=== PATIENT | female | born 1965 | race Caucasian/White ===

== ENCOUNTER 2018-02-07 08:26 | Emergency (ER) | payer BC ==
[2018-02-07] MEDS ORDERED: Ketorolac 60 MG/2 ML SDV IM ONE (09:06)
--- NOTE | 2018-02-07 09:08 | EDM.PDOC ---
ED HPI GENERAL MEDICAL PROBLEM - General Chief Complaint: Headache Stated Complaint: pain on left side of head Time Seen by Provider: 02/07/18 09:00 Source of Information: Reports: Patient History Limitations: Reports: No Limitations - History of Present Illness INITIAL COMMENTS - FREE TEXT/NARRATIVE: History of present illness: []Patient has had her typical migraine are minimally since the . Now has left frontal pressure on her scalp that does not feel like a migraine and is not alleviated with any medications. She denies any visual changes, numbness, tingling, nausea, vomiting or dizziness. Review of systems: As per history of present illness and below otherwise all systems reviewed and negative. Past medical history: As per history of present illness and as reviewed below otherwise noncontributory. Surgical history: As per history of present illness and as reviewed below otherwise noncontributory. Social history: No reported history of drug or alcohol abuse. Family history: As per history of present illness and as reviewed below otherwise noncontributory. Physical exam: General: Well developed, well nourished in NAD HEENT: Atraumatic, normocephalic, pupils reactive, negative for conjunctival pallor or scleral icterus, mucous membranes moist, throat clear, neck supple, nontender, trachea midline. No sinus tenderness TMs normal Lungs: Clear to auscultation, breath sounds equal bilaterally, chest nontender. Heart: S1S2, regular, negative for clicks, rubs, or JVD. Abdomen: Soft, nondistended, nontender. Negative for masses or hepatosplenomegaly. Negative for costovertebral tenderness. Pelvis: Stable nontender. Genitourinary: Deferred. Rectal: Deferred. Extremities: Atraumatic, negative for cords or calf pain. Neurovascular unremarkable. Neuro: Awake, alert, oriented. Cranial nerves II through XII unremarkable. Cerebellum unremarkable. Motor and sensory unremarkable throughout. Exam nonfocal. Present is negative Diagnostics: [] Therapeutics: []Toradol with improvement Impression: []Cephalgia Plan: []Motrin ice packs follow-up with primary care physician return if symptoms worsen or change Definitive disposition and diagnosis as appropriate pending reevaluation and review of above. Left Headache Pain Score (Numeric/FACES): 4 - Related Data Allergies Allergy/AdvReac Type Severity Reaction Status Date / Time Penicillins Allergy Hives Verified 02/07/18 08:51 Sulfa (Sulfonamide Allergy Hives Verified 02/07/18 08:52 Antibiotics) Home Meds: Home Meds . [No Known Home Meds] 02/07/18 [History] Past Medical History - Past Health History Medical/Surgical History: Denies Medical/Surgical History - Infectious Disease History Infectious Disease History: Reports: Chicken Pox, Shingles Social & Family History - Family History Family Medical History: Noncontributory - Tobacco Use Smoking Status *Q: Never Smoker - Caffeine Use Caffeine Use: Reports: Coffee - Recreational Drug Use Recreational Drug Use: No ED ROS GENERAL - Review of Systems Review Of Systems: See Below (See history of present illness) - Physical Exam Exam: See Below (See history of present illness) Course - Vital Signs Last Recorded V/S: Last Vital Signs Temp 97.8 F 02/07/18 08:43 Pulse 104 H 02/07/18 08:43 Resp 16 02/07/18 08:43 BP 127/78 02/07/18 08:43 Pulse Ox 98 02/07/18 08:43 - Orders/Labs/Meds Meds: Medications Discontinued Medications Generic Name Dose Route Start Last Admin Trade Name Freq PRN Reason Stop Dose Admin Ketorolac Tromethamine 60 mg 02/07/18 09:06 02/07/18 09:14 Toradol IM 02/07/18 09:07 60 mg ONETIME ONE Administration Departure - Departure Time of Disposition: 09:52 Disposition: Home, Self-Care 01 Condition: Good Clinical Impression: Cephalgia - Discharge Information Referrals: PCP,None [Primary Care Provider] - Forms: ED Department Discharge Additional Instructions: The following information is given to patients seen in the emergency department who are being discharged to home. This information is to outline your options for follow-up care. We provide all patients seen in our emergency department with a follow-up referral. The need for follow-up, as well as the timing and circumstances, are variable depending upon the specifics of your emergency department visit. If you don't have a primary care physician on staff, we will provide you with a referral. We always advise you to contact your personal physician following an emergency department visit to inform them of the circumstance of the visit and for follow-up with them and/or the need for any referrals to a consulting specialist. The emergency department will also refer you to a specialist when appropriate. This referral assures that you have the opportunity for follow-up care with a specialist. All of these measure are taken in an effort to provide you with optimal care, which includes your follow-up. Under all circumstances we always encourage you to contact your private physician who remains a resource for coordinating your care. When calling for follow-up care, please make the office aware that this follow-up is from your recent emergency room visit. If for any reason you are refused follow-up, please contact the [facility] Emergency Department at and asked to speak to the emergency department charge nurse. Motrin and ice packs for pain follow-up with primary care David if symptoms worsen or change [facility] [address] [place] [id number]
== END 2018-02-07 09:56 | disposition home or self-care (01) ==
LOC: MW.ED 08:26
DX: R51 Headache (principal); Z88.0 Allergy status to penicillin; Z88.2 Allergy status to sulfonamides
CPT/HCPCS: 96372; 99283; J1885; 99282

== ENCOUNTER 2018-02-17 14:40 | Emergency (ER) | payer BC ==
--- NOTE | 2018-02-17 15:40 | EDM.PDOC ---
ED HPI GENERAL MEDICAL PROBLEM - General Chief Complaint: Headache Stated Complaint: HEADACHES Time Seen by Provider: 02/17/18 14:46 - History of Present Illness INITIAL COMMENTS - FREE TEXT/NARRATIVE: HISTORY AND PHYSICAL: History of present illness: Patient's 52-year-old female with history of headache who was scheduled for an MRI and neurology follow-up who presents with a concern of medical screening exam and desirous of expedite her MRI patient has pain that starts in the occipital region goes to the frontal scalp and then develops into what patient describes as migraine type headache she's been seen by her provider has been put on multiple medications she is not used all of them due to a general discomfort with medication. Review of systems: As per history of present illness and below otherwise all systems reviewed and negative. Past medical history: As per history of present illness and as reviewed below otherwise noncontributory. Surgical history: As per history of present illness and as reviewed below otherwise noncontributory. Social history: No reported history of drug or alcohol abuse. Family history: As per history of present illness and as reviewed below otherwise noncontributory. Physical exam: HEENT: Atraumatic, normocephalic, pupils reactive, negative for conjunctival pallor or scleral icterus, mucous membranes moist, throat clear, neck supple, nontender, trachea midline. Lungs: Clear to auscultation, breath sounds equal bilaterally, chest nontender. Heart: S1S2, regular, negative for clicks, rubs, or JVD. Abdomen: Soft, nondistended, nontender. Negative for masses or hepatosplenomegaly. Negative for costovertebral tenderness. Pelvis: Stable nontender. Genitourinary: Deferred. Rectal: Deferred. Extremities: Atraumatic, negative for cords or calf pain. Neurovascular unremarkable. Neuro: Awake, alert, oriented. Cranial nerves II through XII unremarkable. Cerebellum unremarkable. Motor and sensory unremarkable throughout. Exam nonfocal. Diagnostics: Deferred Therapeutics: Deferred Impression: #1 cephalgia #2 rule occipital neuralgia #3 rule out migraine headache Definitive disposition and diagnosis as appropriate pending reevaluation and review of above. headache Pain Score (Numeric/FACES): 7 - Related Data Allergies Allergy/AdvReac Type Severity Reaction Status Date / Time Penicillins Allergy Hives Verified 02/17/18 15:19 Sulfa (Sulfonamide Allergy Hives Verified 02/17/18 15:19 Antibiotics) Home Meds: Home Meds Diclofenac Sodium [IJD: Diclofenac Sodium] 75 mg PO BID PRN 02/17/18 [History] Past Medical History - Past Health History Medical/Surgical History: Denies Medical/Surgical History - Infectious Disease History Infectious Disease History: Reports: Chicken Pox, Shingles Social & Family History - Family History Family Medical History: Noncontributory - Tobacco Use Smoking Status *Q: Never Smoker - Caffeine Use Caffeine Use: Reports: None - Recreational Drug Use Recreational Drug Use: No ED ROS GENERAL - Review of Systems Review Of Systems: ROS reveals no pertinent complaints other than HPI. ED EXAM, GENERAL - Physical Exam Exam: See Below (See dictation) Course - Vital Signs Text/Narrative:: I discussed with patient diagnostic tests including CT scan I also discussed therapeutic interventions including Reglan and Benadryl Toradol Zofran intravenously as a migraine combination patient declines all the above we'll discuss with her private provider expedited follow-up with neurology and MRI. Last Recorded V/S: Last Vital Signs Temp 36.5 C 02/17/18 14:52 Pulse 90 02/17/18 14:52 Resp 18 02/17/18 14:52 BP 142/82 H 02/17/18 14:52 Pulse Ox 95 02/17/18 14:52 Departure - Departure Time of Disposition: 15:39 Disposition: Home, Self-Care 01 Condition: Good Clinical Impression: Cephalgia - Discharge Information Referrals: PCP,None [Primary Care Provider] - Additional Instructions: The following information is given to patients seen in the emergency department who are being discharged to home. This information is to outline your options for follow-up care. We provide all patients seen in our emergency department with a follow-up referral. The need for follow-up, as well as the timing and circumstances, are variable depending upon the specifics of your emergency department visit. If you don't have a primary care physician on staff, we will provide you with a referral. We always advise you to contact your personal physician following an emergency department visit to inform them of the circumstance of the visit and for follow-up with them and/or the need for any referrals to a consulting specialist. The emergency department will also refer you to a specialist when appropriate. This referral assures that you have the opportunity for followup care with a specialist. All of these measure are taken in an effort to provide you with optimal care, which includes your followup. Under all circumstances we always encourage you to contact your private physician who remains a resource for coordinating your care. When calling for followup care, please make the office aware that this follow-up is from your recent emergency room visit. If for any reason you are refused follow-up, please contact the [facility] emergency department at and asked to speak to the emergency department charge nurse. Follow-up private medical doctor medications as directed and return as needed as discussed[]
== END 2018-02-17 16:04 | disposition home or self-care (01) ==
LOC: MW.ED 14:40
DX: R51 Headache (principal); Z88.0 Allergy status to penicillin; Z88.2 Allergy status to sulfonamides
CPT/HCPCS: 99282; 99283

== ENCOUNTER 2018-02-18 02:17 | Emergency (ER) | payer BC ==
[2018-02-18] MEDS ORDERED: Sodium Chloride 0.9% 1,000 ML IV ONE (02:48)
[2018-02-18] MEDS ORDERED: Promethazine 25 MG/ML SDV IM ONE (02:49)
[2018-02-18] MEDS ORDERED: diphenhydrAMINE 50 MG/ML SDV IVPUSH ONE (02:49)
[2018-02-18] MEDS ORDERED: LORazepam 2 MG/ML SDV IVPUSH ONE (02:49)
--- NOTE | 2018-02-18 02:54 | EDM.PDOC ---
ED HPI GENERAL MEDICAL PROBLEM - General Chief Complaint: General Stated Complaint: HEADACHE Time Seen by Provider: 02/18/18 02:50 Source of Information: Reports: Patient - History of Present Illness INITIAL COMMENTS - FREE TEXT/NARRATIVE: HISTORY AND PHYSICAL: History of present illness: [Patient presents with headache she rates 8 out of 10 beginning occipital on the left radiating frontal , she has had headache off and on for nearly a month and has been been reluctant with treatment she states she has had lab scheduled at [facility] with provider Thai. She has been scrubbed prescribed Flexeril tramadol and diclofenac, she has been largely noncompliant with these medications however she did try diclofenac today as well as 2 Benadryl at 10 PM along with ibuprofen and Tylenol as she is reluctant to take medications. He has been reluctant to receive any workup in the past she has multiple ER visits and declined workup or treatment she has been doing some Internet reading ends and is concerned that she may have West Nile and Lyme's disease although these are less likely given the winter season here in [place]. She is not had any imaging although she is scheduled for MRI on the she at this time would like a full workup concerning the headache she has been having and agrees to some treatment as she has been unable to sleep due to the headache tonight No fever nausea vomiting chills sweats no scotomas no chest pain shortness breath dizziness or palpitation no bowel or urine symptoms ] Review of systems: As per history of present illness and below otherwise all systems reviewed and negative. Past medical history: As per history of present illness and as reviewed below otherwise noncontributory. Surgical history: As per history of present illness and as reviewed below otherwise noncontributory. Social history: No reported history of drug or alcohol abuse. Family history: As per history of present illness and as reviewed below otherwise noncontributory. Physical exam: HEENT: Atraumatic, normocephalic, pupils reactive, negative for conjunctival pallor or scleral icterus, mucous membranes moist, throat clear, neck supple, nontender, trachea midline. Lungs: Clear to auscultation, breath sounds equal bilaterally, chest nontender. Heart: S1S2, regular, negative for clicks, rubs, or JVD. Abdomen: Soft, nondistended, nontender. Negative for masses or hepatosplenomegaly. Negative for costovertebral tenderness. Pelvis: Stable nontender. Genitourinary: Deferred. Rectal: Deferred. Extremities: Atraumatic, negative for cords or calf pain. Neurovascular unremarkable. Neuro: Awake, alert, oriented. Cranial nerves II through XII unremarkable. Cerebellum unremarkable. Motor and sensory unremarkable throughout. Exam nonfocal. Diagnostics: [ UVC CMP UA CT head no contrast EKG Chest 1 view ] Therapeutics: [1 L normal saline bolus Benadryl 50 mg IV Phenergan 25 mgIM Lorazepam 1 mg IV ] Impression: [ headache ]--resolved Definitive disposition and diagnosis as appropriate pending reevaluation and review of above. head/chest back Pain Score (Numeric/FACES): 10 - Related Data Allergies Allergy/AdvReac Type Severity Reaction Status Date / Time Penicillins Allergy Hives Verified 02/18/18 02:22 Sulfa (Sulfonamide Allergy Hives Verified 02/18/18 02:22 Antibiotics) Home Meds: Home Meds Diclofenac Sodium [IJD: Diclofenac Sodium] 75 mg PO BID PRN 02/17/18 [History] Cyclobenzaprine [Flexeril] 5 mg PO BID 02/18/18 [History] traMADol HCl [Tramadol HCl] 50 mg PO BID 02/18/18 [History] Past Medical History - Past Health History Medical/Surgical History: Denies Medical/Surgical History HEENT History: Reports: None Cardiovascular History: Reports: None Respiratory History: Reports: None Gastrointestinal History: Reports: None Genitourinary History: Reports: None 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: Musculoskeletal History: Reports: None Neurological History: Reports: Migraines Psychiatric History: Reports: None Endocrine/Metabolic History: Reports: None Hematologic History: Reports: None Dermatologic History: Reports: None - Infectious Disease History Infectious Disease History: Reports: Chicken Pox, Shingles - Past Surgical History Musculoskeletal Surgical History: Reports: None Social & Family History - Family History Family Medical History: Noncontributory - Tobacco Use Smoking Status *Q: Never Smoker - Caffeine Use Caffeine Use: Reports: None - Recreational Drug Use Recreational Drug Use: No ED ROS GENERAL - Review of Systems Review Of Systems: ROS reveals no pertinent complaints other than HPI. ED EXAM, GENERAL - Physical Exam Exam: See Below Course - Vital Signs Last Recorded V/S: Last Vital Signs Temp 98.0 F 02/18/18 02:22 Pulse 94 04/13/18 03:15 Resp 17 02/18/18 03:15 BP 125/77 02/18/18 03:15 Pulse Ox 98 02/18/18 03:15 - Orders/Labs/Meds Orders: Active Orders 24 hr Category Date Time Status EKG Documentation Completion [RC] STAT Care 02/18/18 02:50 Active Chest 1V Frontal [CR] Stat Exams 02/18/18 02:50 Taken Head wo Cont [CT] Stat Exams 02/18/18 02:50 Taken DRUG SCREEN, URINE [URCHEM] Stat Lab 02/18/18 02:18 Ordered UA W/MICROSCOPIC [URIN] Stat Lab 02/18/18 02:18 Ordered Labs: Laboratory Tests 02/18/18 02/18/18 02/18/18 Range/Units 02:18 02:18 02:57 WBC 6.97 (4.0-11.0) K/uL RBC 4.91 (4.30-5.90) M/uL Hgb 14.6 (12.0-16.0) g/dL Hct 43.9 (36.0-46.0) % MCV 89.4 (80.0-98.0) fL MCH 29.7 (27.0-32.0) pg MCHC 33.3 (31.0-37.0) g/dL RDW Std Deviation 41.7 (28.0-62.0) fl RDW Coeff of [place] 13 (11.0-15.0) % Plt Count 200 (150-400) K/uL MPV 9.20 (7.40-12.00) fL Neut % (Auto) 70.6 (48.0-80.0) % Lymph % (Auto) 19.8 (16.0-40.0) % [place] % (Auto) 7.3 (0.0-15.0) % Eos % (Auto) 2.0 (0.0-7.0) % Baso % (Auto) 0.3 (0.0-1.5) % Neut # (Auto) 4.9 (1.4-5.7) K/uL Lymph # (Auto) 1.4 (0.6-2.4) K/uL [place] # (Auto) 0.5 (0.0-0.8) K/uL Eos # (Auto) 0.1 (0.0-0.7) K/uL Baso # (Auto) 0.0 (0.0-0.1) K/uL Sodium (136-145) mmol/L Potassium (3.5-5.1) mmol/L Chloride (98-107) mmol/L Carbon Dioxide (21.0-32.0) mmol/L BUN (7.0-18.0) mg/dL Creatinine (0.6-1.0) mg/dL Est Cr Clr Drug Dosing mL/min Estimated GFR (MDRD) ml/min Glucose (74-106) mg/dL Calcium (8.5-10.1) mg/dL Total Bilirubin (0.2-1.0) mg/dL AST (15-37) IU/L ALT (14-63) IU/L Alkaline Phosphatase (46-116) U/L Creatine Kinase (26-308) U/L Troponin I (0.000-0.056) ng/mL Total Protein (6.4-8.2) g/dL Albumin (3.4-5.0) g/dL Globulin (2.0-3.5) g/dL Albumin/Globulin Ratio (1.3-2.8) Urine Color YELLOW Urine Appearance CLEAR Urine pH 5.5 (5.0-8.0) Ur Specific [place] <= 1.005 (1.001-1.035) Urine Protein NEGATIVE (NEGATIVE) mg/dL Urine Glucose (UA) NEGATIVE (NEGATIVE) mg/dL Urine Ketones NEGATIVE (NEGATIVE) mg/dL Urine Occult Blood LARGE H (NEGATIVE) Urine Nitrite NEGATIVE (NEGATIVE) Urine Bilirubin NEGATIVE (NEGATIVE) Urine Urobilinogen 0.2 (<2.0) EU/dL Ur Leukocyte Esterase NEGATIVE (NEGATIVE) Urine RBC 2-6 (0-2/HPF) Urine WBC 0-1 (0-5/HPF) Ur Epithelial Cells OCCASIONAL (NONE-FEW) Urine Bacteria FEW (NEGATIVE) Urine Opiates Screen NEGATIVE (NEGATIVE) Ur Oxycodone Screen NEGATIVE (NEGATIVE) Urine Methadone Screen NEGATIVE (NEGATIVE) Ur Barbiturates Screen NEGATIVE (NEGATIVE) Ur Phencyclidine Scrn NEGATIVE (NEGATIVE) Ur Amphetamine Screen NEGATIVE (NEGATIVE) U Methamphetamines Scrn NEGATIVE (NEGATIVE) U Benzodiazepines Scrn NEGATIVE (NEGATIVE) U Cocaine Metab Screen NEGATIVE (NEGATIVE) U Marijuana (THC) Screen NEGATIVE (NEGATIVE) 02/18/18 02/18/18 Range/Units 02:57 02:57 WBC (4.0-11.0) K/uL RBC (4.30-5.90) M/uL Hgb (12.0-16.0) g/dL Hct (36.0-46.0) % MCV (80.0-98.0) fL MCH (27.0-32.0) pg MCHC (31.0-37.0) g/dL RDW Std Deviation (28.0-62.0) fl RDW Coeff of [place] (11.0-15.0) % Plt Count (150-400) K/uL MPV (7.40-12.00) fL Neut % (Auto) (48.0-80.0) % Lymph % (Auto) (16.0-40.0) % [place] % (Auto) (0.0-15.0) % Eos % (Auto) (0.0-7.0) % Baso % (Auto) (0.0-1.5) % Neut # (Auto) (1.4-5.7) K/uL Lymph # (Auto) (0.6-2.4) K/uL [place] # (Auto) (0.0-0.8) K/uL Eos # (Auto) (0.0-0.7) K/uL Baso # (Auto) (0.0-0.1) K/uL Sodium 139 (136-145) mmol/L Potassium 3.9 (3.5-5.1) mmol/L Chloride 103 (98-107) mmol/L Carbon Dioxide 27.7 (21.0-32.0) mmol/L BUN 13 (7.0-18.0) mg/dL Creatinine 1.0 (0.6-1.0) mg/dL Est Cr Clr Drug Dosing 71.97 mL/min Estimated GFR (MDRD) 58.5 ml/min Glucose 131 H (74-106) mg/dL Calcium 9.7 (8.5-10.1) mg/dL Total Bilirubin 0.4 (0.2-1.0) mg/dL AST 15 (15-37) IU/L ALT 17 (14-63) IU/L Alkaline Phosphatase 60 (46-116) U/L Creatine Kinase 87 (26-308) U/L Troponin I < 0.050 (0.000-0.056) ng/mL Total Protein 8.1 (6.4-8.2) g/dL Albumin 4.6 (3.4-5.0) g/dL Globulin 3.5 (2.0-3.5) g/dL Albumin/Globulin Ratio 1.3 (1.3-2.8) Urine Color Urine Appearance Urine pH (5.0-8.0) Ur Specific [place] (1.001-1.035) Urine Protein (NEGATIVE) mg/dL Urine Glucose (UA) (NEGATIVE) mg/dL Urine Ketones (NEGATIVE) mg/dL Urine Occult Blood (NEGATIVE) Urine Nitrite (NEGATIVE) Urine Bilirubin (NEGATIVE) Urine Urobilinogen (<2.0) EU/dL Ur Leukocyte Esterase (NEGATIVE) Urine RBC (0-2/HPF) Urine WBC (0-5/HPF) Ur Epithelial Cells (NONE-FEW) Urine Bacteria (NEGATIVE) Urine Opiates Screen (NEGATIVE) Ur Oxycodone Screen (NEGATIVE) Urine Methadone Screen (NEGATIVE) Ur Barbiturates Screen (NEGATIVE) Ur Phencyclidine Scrn (NEGATIVE) Ur Amphetamine Screen (NEGATIVE) U Methamphetamines Scrn (NEGATIVE) U Benzodiazepines Scrn (NEGATIVE) U Cocaine Metab Screen (NEGATIVE) U Marijuana (THC) Screen (NEGATIVE) Meds: Medications Discontinued Medications Generic Name Dose Route Start Last Admin Trade Name Freq PRN Reason Stop Dose Admin Diphenhydramine HCl 50 mg 02/18/18 02:49 02/18/18 03:10 Benadryl IVPUSH 02/18/18 02:50 50 mg ONETIME ONE Administration Sodium Chloride 1,000 mls @ 999 mls/hr 02/18/18 02:48 02/18/18 03:09 Normal Saline IV 02/18/18 03:48 999 mls/hr STAT ONE Administration Lorazepam 1 mg 02/18/18 02:49 02/18/18 03:11 Ativan IVPUSH 02/18/18 02:50 1 mg ONETIME ONE Administration Promethazine HCl 25 mg 02/18/18 02:49 02/18/18 03:07 Phenergan IM 02/18/18 02:50 25 mg ONETIME ONE Administration Departure - Departure Time of Disposition: 05:24 Disposition: Home, Self-Care 01 Condition: Good Clinical Impression: Headache - Discharge Information Referrals: Zoya Andre YAM CURER [Primary Care Provider] - Forms: ED Department Discharge Additional Instructions: Medication as prescribed I would recommend taking the diclofenac that you have prescribed 2 times daily along with Flexeril/cyclobenzaprine which she has not used 2-3 times daily along with fluid hydration Certain stress-related medications may help this will be worth following with your primary care to sort through Return if new concerning symptoms develop or symptoms persist or worsen Follow with your primary care as scheduled The following information is given to patients seen in the emergency department who are being discharged to home. This information is to outline your options for follow-up care. We provide all patients seen in our emergency department with a follow-up referral. The need for follow-up, as well as the timing and circumstances, are variable depending upon the specifics of your emergency department visit. If you don't have a primary care physician on staff, we will provide you with a referral. We always advise you to contact your personal physician following an emergency department visit to inform them of the circumstance of the visit and for follow-up with them and/or the need for any referrals to a consulting specialist. The emergency department will also refer you to a specialist when appropriate. This referral assures that you have the opportunity for follow-up care with a specialist. All of these measure are taken in an effort to provide you with optimal care, which includes your follow-up. Under all circumstances we always encourage you to contact your private physician who remains a resource for coordinating your care. When calling for follow-up care, please make the office aware that this follow-up is from your recent emergency room visit. If for any reason you are refused follow-up, please contact the [facility] emergency department at and asked to speak to the emergency department charge nurse. - My Orders Last 24 Hours: My Active Orders 02/18/18 02:18 DRUG SCREEN, URINE [URCHEM] Stat UA W/MICROSCOPIC [URIN] Stat 02/18/18 02:50 EKG Documentation Completion [RC] STAT Chest 1V Frontal [CR] Stat Head wo Cont [CT] Stat - Assessment/Plan Last 24 Hours: My Active Orders 02/18/18 02:18 DRUG SCREEN, URINE [URCHEM] Stat UA W/MICROSCOPIC [URIN] Stat 02/18/18 02:50 EKG Documentation Completion [RC] STAT Chest 1V Frontal [CR] Stat Head wo Cont [CT] Stat
--- NOTE | 2018-02-18 15:10 | CR ---
EXAM DATE: 02/18/18 PATIENT'S AGE: 52 Patient: TERESA HORAN Facility: [place], [place] Site . Site : 1965 Study: XRay Chest [id number]/13/2018 3:59:19 AM Ordering Physician: Zuleyka Aj Final Report: INDICATION: PAIN/SOB/DIZZINESS TECHNIQUE: Chest 1 view COMPARISON: None FINDINGS: Cardiovascular and mediastinum: Heart size and vasculature are normal in caliber and appearance. Mediastinum is within normal limits. Lungs and pleural space: No focal consolidation. No sign of pleural effusion. No pneumothorax. Bones and soft tissues: No significant findings. IMPRESSION: No acute cardiopulmonary disease. Dictated by Brody Naik MD @ 02/18/2018 4:01:18 AM Dictated by: Brody Naik MD @ 02/18/2018 04:01:26 (Electronic Signature) Report Signed by Proxy. MTDShannon
--- NOTE | 2018-02-18 15:10 | CT ---
EXAM DATE: 02/18/18 PATIENT'S AGE: 52 Patient: TERESA HORAN Facility: [place], [place] Site . Site : 1965 Study: CT Head [id number]/13/2018 4:01:29 AM Ordering Physician: Zuleyka Aj Final Report: INDICATION: DIZZINESS/PAIN TECHNIQUE: CT Head without contrast. COMPARISON: None. FINDINGS: There is no sign of intracranial hemorrhage or mass effect. The yost-white differentiation is preserved. No abnormal intra-axial or extra-axial fluid collection. No acute disease of the visualized paranasal sinuses and mastoid air cells. No fracture evident. No scalp hematoma/laceration. IMPRESSION: No acute intracranial process. Please note that all CT scans at this facility use dose modulation, iterative reconstruction, and/or weight-based dosing when appropriate to reduce radiation dose to as low as reasonably achievable. Dictated by: Brody Naik MD @ 02/18/2018 04:09:06 (Electronic Signature) Report Signed by Proxy. MTDD
== END 2018-02-18 05:54 | disposition home or self-care (01) ==
LOC: MW.ED 02:17
DX: R51 Headache (principal); Z88.0 Allergy status to penicillin; Z88.2 Allergy status to sulfonamides; Z79.899 Other long term (current) drug therapy
CPT/HCPCS: 70450; 71045; 80053; 80305; 81001; 82550; 84484; 85025; 93005; 96361; 96372; 96374; 96375; 99284; J1200; J2060; J2550; J7040; 99283

== ENCOUNTER 2018-04-06 05:00 | Emergency (ER) | payer BC ==
--- NOTE | 2018-04-06 05:13 | EDM.PDOC ---
ED HPI GENERAL MEDICAL PROBLEM - General Chief Complaint: Headache Stated Complaint: HEAD PAIN RADIATING TO WHOLE BODY Time Seen by Provider: 04/06/18 05:12 Source of Information: Reports: Patient - History of Present Illness INITIAL COMMENTS - FREE TEXT/NARRATIVE: HISTORY AND PHYSICAL: History of present illness: 52-year-old female presenting to the emergency department with chief complaint of headache/burning sensation of her head and extremities. Patient is well-known to the emergency room and has been seen 4 times previously for similar symptoms. She is also being followed by Dr. Luis, neurologist. She recently was also referred to [facility]. Patient has had problems with a headache that originates on the left occipital area of the scalp and proceeds anteriorly with more of a burning sensation. Dr. Luis had placed the patient on indomethacin which seem to be helping somewhat with her issue. She was referred by Dr. Luis to [facility]. Patient states that she left [facility] on 03/28 and was started her on gabapentin 500 mg 3 times a day. She states that she has had continued burning sensation which is now involving her upper and lower extremities. This is a new symptom as she did not have involvement of her lower extremities until recently. She describes it as a burning tingling sensation. Her lower extremities became more involved just recently and she states that it is more on the inner aspects of her legs than outer but both are involved. She has been unable to sleep and states that she has been up for the last 3 nights. She has been trying to get a hold of Dr. Luis but states that she is out of town. Patient has seen Zoya Bee NP at [facility] but has not established any other primary provider. She denies any visual changes, nausea, vomiting, or new focal neurologic deficits. She currently denies any chest pain, palpitations, shortness of breath , syncopal episodes. Review of systems: As per history of present illness and below otherwise all systems reviewed and negative. Past medical history: As per history of present illness and as reviewed below otherwise noncontributory. Surgical history: As per history of present illness and as reviewed below otherwise noncontributory. Social history: No reported history of drug or alcohol abuse. Family history: As per history of present illness and as reviewed below otherwise noncontributory. Physical exam: HEENT: Atraumatic, normocephalic, pupils reactive, negative for conjunctival pallor or scleral icterus, mucous membranes moist, throat clear, neck supple, nontender, trachea midline. Lungs: Clear to auscultation, breath sounds equal bilaterally, chest nontender. Heart: S1S2, regular, negative for clicks, rubs, or JVD. Abdomen: Soft, nondistended, nontender. Negative for masses or hepatosplenomegaly. Negative for costovertebral tenderness. Pelvis: Stable nontender. Genitourinary: Deferred. Rectal: Deferred. Extremities: Atraumatic, negative for cords or calf pain. Neurovascular unremarkable. Neuro: Awake, alert, oriented. Cranial nerves II through XII unremarkable. Cerebellum unremarkable. Motor and sensory unremarkable throughout. Exam nonfocal. 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 I discussed with her at length the need to set up a core primary care provider that can help coordinate her care as she has a very complex medical condition. I suggested that she follow with the residency clinic and Dr. Lewis as they may be able to spend more time with her and help coordinate better with Dr. Luis as well as other facilities such as [facility]. We were able to get her all the information on the residency clinic and she is going to call them today and schedule an appointment. I did instruct her to call them and tell them that Dr. Hyman had seen her in emergency department and advised her to be seen by them as soon as possible to establish care. Patient was discharged in good condition with instructions to follow with above appointment as well as return to emergency department if she had any new or worsening symptoms. She should continue her normal medical regime established by Dr. Luis as well as [facility]. head Pain Score (Numeric/FACES): 9 - Related Data Allergies Allergy/AdvReac Type Severity Reaction Status Date / Time Penicillins Allergy Hives Verified 04/06/18 05:14 Sulfa (Sulfonamide Allergy Hives Verified 04/06/18 05:14 Antibiotics) Home Meds: Home Meds ALPRAZolam [Alprazolam Odt] 1 tab PO DAILY PRN 04/06/18 [History] Gabapentin [Neurontin] 1 cap PO TID 04/06/18 [History] Indomethacin 3 cap PO TID 04/06/18 [History] Promethazine [Phenergan] 1 tab PO Q6HR PRN 04/06/18 [History] Rizatriptan Benzoate [Rizatriptan] 1 tab PO DAILY 04/06/18 [History] Past Medical History - Past Health History Medical/Surgical History: Denies Medical/Surgical History HEENT History: Reports: None Cardiovascular History: Reports: None Respiratory History: Reports: None Gastrointestinal History: Reports: None Genitourinary History: Reports: 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: Musculoskeletal History: Reports: None Neurological History: Reports: Migraines Psychiatric History: Reports: None Endocrine/Metabolic History: Reports: None Hematologic History: Reports: None Dermatologic History: Reports: None - Infectious Disease History Infectious Disease History: Reports: Chicken Pox, Shingles - Past Surgical History Musculoskeletal Surgical History: Reports: None Social & Family History - Family History Family Medical History: Noncontributory - Caffeine Use Caffeine Use: Reports: None ED ROS GENERAL - Review of Systems Review Of Systems: See Below ED EXAM, GENERAL - Physical Exam Exam: See Below Course - Vital Signs Last Recorded V/S: Last Vital Signs Temp 98 F 04/06/18 05:00 Pulse 95 04/06/18 05:00 Resp 16 04/06/18 05:00 BP 148/89 H 04/06/18 05:00 Pulse Ox 99 04/06/18 05:00 - Orders/Labs/Meds Meds: Medications Discontinued Medications Generic Name Dose Route Start Last Admin Trade Name Christine PRN Reason Stop Dose Admin Diphenhydramine HCl 50 mg 04/06/18 05:45 04/06/18 05:55 Benadryl IVPUSH 04/06/18 05:46 Not Given ONETIME ONE Diphenhydramine HCl 25 mg 04/06/18 05:48 04/06/18 05:55 Benadryl IVPUSH 04/06/18 05:49 25 mg ONETIME ONE Administration Sodium Chloride 1,000 mls @ 999 mls/hr 04/06/18 05:44 04/06/18 05:55 Normal Saline IV 04/06/18 06:44 999 mls/hr STAT ONE Administration Lorazepam 1 mg 04/06/18 05:45 04/06/18 05:55 Ativan IVPUSH 04/06/18 05:46 1 mg ONETIME ONE Administration Promethazine HCl 25 mg 04/06/18 05:45 04/06/18 05:55 Phenergan PO 04/06/18 05:46 25 mg NOW STA Administration Departure - Departure Time of Disposition: 06:48 Disposition: Home, Self-Care 01 Condition: Good Clinical Impression: Cephalalgia - Discharge Information Referrals: Zoya Andre NP [Primary Care Provider] - Forms: ED Department Discharge Additional Instructions: My general discharge The following information is given to patients seen in the emergency department who are being discharged to home. This information is to outline your options for follow-up care. We provide all patients seen in our emergency department with a follow-up referral. The need for follow-up, as well as the timing and circumstances, are variable depending upon the specifics of your emergency department visit. If you don't have a primary care physician on staff, we will provide you with a referral. We always advise you to contact your personal physician following an emergency department visit to inform them of the circumstance of the visit and for follow-up with them and/or the need for any referrals to a consulting specialist. The emergency department will also refer you to a specialist when appropriate. This referral assures that you have the opportunity for follow-up care with a specialist. All of these measure are taken in an effort to provide you with optimal care, which includes your follow-up. Under all circumstances we always encourage you to contact your private physician who remains a resource for coordinating your care. When calling for follow-up care, please make the office aware that this follow-up is from your recent emergency room visit. If for any reason you are refused follow-up, please contact the [facility] Emergency Department at and asked to speak to the emergency department charge nurse. [facility] [address] [place] [id number] [facility] - Neurology Professional Building [address] [place] [address], [address] [place] [address]
[2018-04-06] MEDS: diphenhydrAMINE 50 MG/ML SDV IVPUSH ONE ×2 (05:55)
[2018-04-06] MEDS: Sodium Chloride 0.9% 1,000 ML IV ONE (05:55)
[2018-04-06] MEDS: LORazepam 2 MG/ML SDV IVPUSH ONE (05:55)
[2018-04-06] MEDS: Promethazine 25 MG Tab PO STA (05:55)
== END 2018-04-06 07:15 | disposition home or self-care (01) ==
LOC: MW.ED 05:00
DX: R51 Headache (principal); Z88.2 Allergy status to sulfonamides; Z88.0 Allergy status to penicillin; Z79.899 Other long term (current) drug therapy
CPT/HCPCS: 96361; 96374; 96375; 99284; A9270; J1200; J2060; J7040

== ENCOUNTER 2018-04-13 12:23 | Emergency (ER) | payer BC ==
[2018-04-13] MEDS ORDERED: Ketorolac 60 MG/2 ML SDV IM ONE (13:36)
--- NOTE | 2018-04-13 13:42 | EDM.PDOC ---
ED HPI GENERAL MEDICAL PROBLEM - General Chief Complaint: Headache Stated Complaint: HEADACHES Time Seen by Provider: 04/13/18 13:22 - History of Present Illness INITIAL COMMENTS - FREE TEXT/NARRATIVE: HISTORY AND PHYSICAL: History of present illness: Patient 52-year-old white female with a history of migraine headache and neuropathy for which she's been followed by neurology locally and at [facility] she has been put on a course of indomethacin in addition to gabapentin which has been increasing the dose and comes in now with left-sided head face neck pain that she attributes to this same chronic intermittent pain syndrome she's had. She denies any new neurological signs or symptoms Review of systems: As per history of present illness and below otherwise all systems reviewed and negative. Past medical history: As per history of present illness and as reviewed below otherwise noncontributory. Surgical history: As per history of present illness and as reviewed below otherwise noncontributory. Social history: No reported history of drug or alcohol abuse. Family history: As per history of present illness and as reviewed below otherwise noncontributory. Physical exam: HEENT: Atraumatic, normocephalic, pupils reactive, negative for conjunctival pallor or scleral icterus, mucous membranes moist, throat clear, neck supple, nontender, trachea midline. Lungs: Clear to auscultation, breath sounds equal bilaterally, chest nontender. Heart: S1S2, regular, negative for clicks, rubs, or JVD. Abdomen: Soft, nondistended, nontender. Negative for masses or hepatosplenomegaly. Negative for costovertebral tenderness. Pelvis: Stable nontender. Genitourinary: Deferred. Rectal: Deferred. Extremities: Atraumatic, negative for cords or calf pain. Neurovascular unremarkable. Neuro: Awake, alert, oriented. Cranial nerves II through XII unremarkable. Cerebellum unremarkable. Motor and sensory unremarkable throughout. Exam nonfocal. Diagnostics: None Therapeutics: Toradol 60 mg IM Impression: #1 chronic pain syndrome Definitive disposition and diagnosis as appropriate pending reevaluation and review of above. Left head pain Pain Score (Numeric/FACES): 8 - Related Data Allergies Allergy/AdvReac Type Severity Reaction Status Date / Time Penicillins Allergy Hives Verified 04/13/18 12:31 Sulfa (Sulfonamide Allergy Hives Verified 04/13/18 12:31 Antibiotics) Home Meds: Home Meds ALPRAZolam [Alprazolam Odt] 25 mg PO BEDTIME 04/06/18 [History] Gabapentin [Neurontin] 900 mg PO TID 04/06/18 [History] Promethazine [Phenergan] 1 tab PO Q6HR PRN 04/06/18 [History] Rizatriptan Benzoate [Rizatriptan] 1 tab PO DAILY 04/06/18 [History] Past Medical History - Past Health History Medical/Surgical History: Denies Medical/Surgical History HEENT History: Reports: None Cardiovascular History: Reports: None Respiratory History: Reports: None Gastrointestinal History: Reports: None Genitourinary History: Reports: None [employer]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 Psychiatric History: Reports: None Endocrine/Metabolic History: Reports: None Hematologic History: Reports: None Dermatologic History: Reports: None - Infectious Disease History Infectious Disease History: Reports: Chicken Pox, Shingles - Past Surgical History Musculoskeletal Surgical History: Reports: None Social & Family History - Family History Family Medical History: Noncontributory - Tobacco Use Smoking Status *Q: Never Smoker - Caffeine Use Caffeine Use: Reports: None - Recreational Drug Use Recreational Drug Use: Yes Recreational Drug Type: Reports: Marijuana/Hashish ED ROS GENERAL - Review of Systems Review Of Systems: ROS reveals no pertinent complaints other than HPI. ED EXAM, GENERAL - Physical Exam Exam: See Below (Dictation) Course - Vital Signs Text/Narrative:: Case was discussed with Dr. Luis who recommends Toradol and will try to expedite patient's appointment patient is to continue her current medications as prescribed Last Recorded V/S: Last Vital Signs Temp 36.2 C 04/13/18 12:34 Pulse 104 H 04/13/18 12:34 Resp 18 04/13/18 12:34 BP 126/58 L 04/13/18 12:34 Pulse Ox 98 04/13/18 12:34 Departure - Departure Time of Disposition: 13:45 Disposition: Home, Self-Care 01 Condition: Good Clinical Impression: Migraine, Chronic pain - Discharge Information Referrals: PCP,None [Primary Care Provider] - Additional Instructions: The following information is given to patients seen in the emergency department who are being discharged to home. This information is to outline your options for follow-up care. We provide all patients seen in our emergency department with a follow-up referral. The need for follow-up, as well as the timing and circumstances, are variable depending upon the specifics of your emergency department visit. If you don't have a primary care physician on staff, we will provide you with a referral. We always advise you to contact your personal physician following an emergency department visit to inform them of the circumstance of the visit and for follow-up with them and/or the need for any referrals to a consulting specialist. The emergency department will also refer you to a specialist when appropriate. This referral assures that you have the opportunity for followup care with a specialist. All of these measure are taken in an effort to provide you with optimal care, which includes your followup. Under all circumstances we always encourage you to contact your private physician who remains a resource for coordinating your care. When calling for followup care, please make the office aware that this follow-up is from your recent emergency room visit. If for any reason you are refused follow-up, please contact the [facility] emergency department at and asked to speak to the emergency department charge nurse. Continue medications as prescribed follow-up with neurology return as needed as discussed
== END 2018-04-13 14:35 | disposition home or self-care (01) ==
LOC: MW.ED 12:23
DX: G43.909 Migraine, unspecified, not intractable, without status migrainosus (principal); G89.4 Chronic pain syndrome; Z88.0 Allergy status to penicillin; Z88.2 Allergy status to sulfonamides; Z79.899 Other long term (current) drug therapy
CPT/HCPCS: 96372; 99283; J1885

== ENCOUNTER 2023-08-13 11:55 | Day surgery (SDC) | payer BC ==
[~2023-08-13 11:55] MED LIST: Lactated Ringers 1,000 ML IV SCH; Lidocaine 2% 5 ML SDV ONE; Propofol 200 MG/20 ML SDV ONE
[2023-08-13] MEDS ORDERED: Lactated Ringers 1,000 ML IV SCH (12:45)
== END 2023-08-13 13:16 | disposition home or self-care (01) ==
LOC: MW.SDS 11:55
PROVIDERS: ATTEND Surgery
DX: K29.50 Unspecified chronic gastritis without bleeding (principal); K21.00 Gastro-esophageal reflux disease with esophagitis, without bleeding; K31.89 Other diseases of stomach and duodenum; K44.9 Diaphragmatic hernia without obstruction or gangrene; F41.9 Anxiety disorder, unspecified; F32.A Depression, unspecified; F44.9 Dissociative and conversion disorder, unspecified; G43.009 Migraine without aura, not intractable, without status migrainosus; G62.9 Polyneuropathy, unspecified; R94.8 Abnormal results of function studies of other organs and systems; G50.0 Trigeminal neuralgia; Z88.0 Allergy status to penicillin; Z88.2 Allergy status to sulfonamides; Z91.041 Radiographic dye allergy status; Z79.899 Other long term (current) drug therapy; Z80.0 Family history of malignant neoplasm of digestive organs; Z87.11 Personal history of peptic ulcer disease
CPT/HCPCS: 43239; J2704; J7120; 00731; J3490

== ENCOUNTER 2023-08-30 10:29 | Day surgery (SDC) | payer BC ==
[~2023-08-30 10:29] MED LIST changes: -Lidocaine 2% 5 ML SDV ONE; -Propofol 200 MG/20 ML SDV ONE
[2023-08-30] MEDS ORDERED: propofoL 50 ML ONE (12:18)
[2023-08-30] MEDS ORDERED: Lactated Ringers 1,000 ML IV SCH (13:15)
== END 2023-08-30 13:30 | disposition home or self-care (01) ==
LOC: MW.SDS 10:29
PROVIDERS: ATTEND Surgery
DX: Z12.11 Encounter for screening for malignant neoplasm of colon (principal); R10.13 Epigastric pain; R10.11 Right upper quadrant pain; R94.8 Abnormal results of function studies of other organs and systems; F41.9 Anxiety disorder, unspecified; K31.89 Other diseases of stomach and duodenum; F32.A Depression, unspecified; Z80.0 Family history of malignant neoplasm of digestive organs; Z88.0 Allergy status to penicillin; Z88.2 Allergy status to sulfonamides; Z88.8 Allergy status to other drugs, medicaments and biological substances; Z79.899 Other long term (current) drug therapy
CPT/HCPCS: 45378; J2704; J7120

== ENCOUNTER 2023-09-20 06:28 | Day surgery (SDC) | payer BC ==
[~2023-09-20 06:28] MED LIST changes: +cefOXitin 2 GM in Sodium Chloride 0.9% 100 ML IV ONE; +cefOXitin 2 GM in Sodium Chloride 0.9% 50 ML IV ONE
[2023-09-20] MEDS ORDERED: Scopolamine 1.5 MG Transdermal Patch ONE (06:50)
[2023-09-20] MEDS ORDERED: Scopolamine 1.5 MG Transdermal Patch TRDERM PRN (07:07)
[2023-09-20] MEDS ORDERED: Rocuronium Bromide 50 MG/5 ML Syringe ONE (07:20)
[2023-09-20] MEDS ORDERED: Dexmedetomidine 200 MCG/2 ML SDV ONE (07:20)
[2023-09-20] MEDS ORDERED: Propofol 200 MG/20 ML SDV ONE ×2 (07:20→07:25)
[2023-09-20] MEDS ORDERED: fentaNYL 100 MCG/2 ML SDV ONE ×2 (07:20→09:04)
[2023-09-20] MEDS ORDERED: Water For Injection, Sterile 20 ML ONE (07:20)
[2023-09-20] MEDS ORDERED: Bupivacaine 0.5% 30 ML SDV ONE (07:23)
[2023-09-20] MEDS ORDERED: ceFAZolin 1 GM Vial ONE (07:23)
[2023-09-20] MEDS ORDERED: Ropivacaine 0.5% 5 MG/ML 30 ML SDV ONE (07:31)
[2023-09-20] MEDS ORDERED: EPINEPHrine 1 MG/1 ML Amp ONE (07:31)
[2023-09-20] MEDS ORDERED: Bupivacaine 0.25% 30 ML SDV ONE (07:31)
[2023-09-20] MEDS ORDERED: Indocyanine Green 25 MG SDV ONE (07:58)
[2023-09-20] MEDS ORDERED: cefOXitin 1 GM Vial ONE (08:03)
[2023-09-20] MEDS ORDERED: Magnesium Sulfate (4.06 MEQ/ML) 5 GM/10 ML SDV ONE (08:08)
[2023-09-20] MEDS ORDERED: Dexamethasone 4 MG/ML 5 ML MDV ONE (08:16)
[2023-09-20] MEDS ORDERED: droPERidol 5 MG/2 ML SDV IVPUSH PRN (08:20)
[2023-09-20] MEDS ORDERED: Metoclopramide 10 MG/2 ML SDV IVPUSH PRN (08:20)
[2023-09-20] MEDS ORDERED: fentaNYL 50 MCG/ML SDV IVPUSH PRN (08:20)
[2023-09-20] MEDS ORDERED: Naloxone 0.4 MG/ML SDV IVPUSH PRN (08:20)
[2023-09-20] MEDS ORDERED: HYDROmorphone 1 MG/ML Syringe IVPUSH PRN (08:20)
[2023-09-20] MEDS ORDERED: Albuterol 0.083% 2.5 MG/3 ML Neb Soln NEB PRN (08:20)
[2023-09-20] MEDS ORDERED: Morphine 2 MG/ML SYRINGE IVPUSH PRN (08:20)
[2023-09-20] MEDS ORDERED: Ondansetron 4 MG/2 ML SDV IVPUSH PRN (08:20)
[2023-09-20] MEDS ORDERED: Sugammadex Sodium 200 MG/2 ML VIAL ONE (08:59)
[2023-09-20] MEDS ORDERED: Ondansetron 4 MG/2 ML SDV ONE (08:59)
[2023-09-20] MEDS ORDERED: Acetaminophen/HYDROcodone 325-5 MG Tab PO PRN (09:20)
[2023-09-20] MEDS ORDERED: Morphine 4 MG/ML Syringe IVPUSH PRN (09:20)
[2023-09-20] MEDS ORDERED: Lactated Ringers 1,000 ML IV SCH (09:30)
== END 2023-09-20 11:00 | disposition home or self-care (01) ==
LOC: MW.SDS 06:28
PROVIDERS: ATTEND Surgery
DX: K81.1 Chronic cholecystitis (principal); F41.9 Anxiety disorder, unspecified; F32.A Depression, unspecified; K31.89 Other diseases of stomach and duodenum; Z88.0 Allergy status to penicillin; Z88.2 Allergy status to sulfonamides; Z79.899 Other long term (current) drug therapy
CPT/HCPCS: 47562; 64488; A9270; J0131; J0171; J0694; J1100; J2405; J2704; J2795; J3010; J3475; J3490; J7030; J7120; J0690